=== PATIENT | male | born 1980 | race Caucasian/White ===

== ENCOUNTER 2017-04-10 22:08 | Inpatient (IN) | payer OTHER ==
[~2017-04-10] VITALS: Ht 182.9 cm; Wt 98.2 kg
--- NOTE | ~2017-04-10 | EKG ---
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1980 Requested By: Dacia Soto Order Number: [id number] MD: Jonn Arias Measurements Intervals [place] Rate: 83 P: 51 WA: 164 QRS: -21 QRSD: 88 T: 41 QT: 382 QTc: 449 Interpretive Statements Sinus rhythm Borderline left axis deviation Compared to ECG 10/15/2016 16:28:02 ST (T wave) deviation now present Sinus tachycardia no longer present Myocardial infarct finding no longer present Electronically Signed On 04-11-2017 7:58:27 CDT by Jonn Arias [email or web address] <ELECTRONICALLY SIGNED> By: Jonn Arias MD, [facility] 04/11/17 [id number] Jonn Arias MD, [facility] /EPI
[~2017-04-10 22:08] MED LIST: CIPRO500 MG PO; CLONAZEPAM 1 MG1 M1 PO; COMPAZINE10 MG PO; FLAGYL 250 MG250 MG PO; FLAGYL500 MG PO; HYDROCODONE-AP1 EAC6 PO; LOMOTIL TABLET1 EACH PO; MS CONTIN 60 MG60 M1 PO; NEURONTIN600 MG PO; OXYCONTIN10 M1 PO; PENTASA500 MG PO; POTASSIUM20 PO; PREDNISONE 20 M20 MG PO; PROTONIX40 M1 PO; REGLAN 10 MG TA10 MG PO; REMICADE 1100 MG/VIA; RESTORIL30 MG PO; SLOW-MAG64 MG PO; ZOFRAN ODT4 MG DISSOLVE; ZOFRAN ODT4 MG PO; ZOLPIDEM TARTRA10 MG PO
[2017-04-10 22:11] VITALS: BP 133/89
[2017-04-10 22:53] LABS: ABSOLUTE NEUTROPHILS 10.2 thou/uL (1.4-8.2); BASOPHILS 0.9 % (0.0-2.0); EOSINOPHILS 0.5 % (0.0-3.0); HEMATOCRIT 45.6 % (42.0-52.0); HEMOGLOBIN 15.4 gm/dL (14.0-18.0); LYMPHOCYTES 18.7 % (24.0-44.0); MANUAL DIFF NO; MCH 25.9 pg (26.0-34.0); MCHC 33.8 g/dL (28.0-37.0); MCV 76.7 fL (80.0-100.0); MONOCYTES 4.8 % (1.0-8.0); PLATELET COUNT 297 thou/uL (150-400); POLYS 75.1 % (36.0-66.0); RBC 5.95 mil/uL (4.50-6.00); RDW 18.2 % (10.5-14.5); WBC 13.6 thou/uL (4.0-11.0)
[2017-04-10 23:01] LABS: CREATININE 0.7 mg/dL (0.7-1.3)
[2017-04-10 23:09] LABS: CALCIUM 5.7 mg/dL (8.5-10.1); POTASSIUM 1.9 mmol/L (3.5-5.1)
[2017-04-10] MEDS ORDERED: OXYCODONE HCL 55 MG PO (23:32)
[2017-04-10] MEDS ORDERED: MS CONTIN15 MG PO (23:33)
[2017-04-10] MEDS ORDERED: KEFLEX500 MG PO (23:34)
[2017-04-10] MEDS ORDERED: DOXYCYCLINE 10100 MG PO (23:34)
[2017-04-11 01:38] LABS: ALBUMIN 4.5 g/dL (3.4-5.0); DIRECT BILIRUBIN 0.2 mg/dL (<0.1-0.3); TOTAL BILIRUBIN 1.2 mg/dL (<0.1-1.0); TOTAL PROTEIN 7.8 g/dL (6.4-8.2)
[2017-04-11 01:51] VITALS: BP 126/75
[2017-04-11 02:21] VITALS: BP 134/87
[2017-04-11 05:24] VITALS: BP 103/58
[2017-04-11 08:30] VITALS: BP 99/63
[2017-04-11 11:00] LABS: AMP/METHAMP Negative (Negative); BARBITURATES Negative (Negative); BENZODIAZEPINES POSITIVE (Negative); COCAINE Negative (Negative); METHADONE Negative (Negative); OPIATES POSITIVE (Negative); PCP Negative (Negative); THC Negative (Negative)
[2017-04-11 14:28] LABS: URINE BILIRUBIN NEGATIVE (Negative); URINE BLOOD NEGATIVE (Negative); URINE COLOR YELLOW; URINE GLUCOSE-RANDOM* NEGATIVE (Negative); URINE KETONES NEGATIVE (Negative); URINE LEUKOCYTES-REFLEX NEGATIVE (Negative); URINE PROTEIN (DIPSTICK) NEGATIVE (Negative); URINE SPECIFIC GRAVITY 1.025 (1.003-1.035); URINE UROBILINOGEN 0.2 E.U./dl (0.2-1.0)
[2017-04-11 16:00] VITALS: BP 108/56
[2017-04-11] MEDS ORDERED: ZOFRAN ODT4 MG PO (22:58)
== END 2017-04-11 16:31 | disposition left against medical advice (07) | DRG 386 ==
LOC: ER 22:08 → 4N 04-11 01:00 → EROBS 04-11 01:00 → 4N 04-11 02:08
PROVIDERS: Emergency Medicine; Nurse Practitioner Acute Care; Nurse Practitioner Family
DX: K50.90 Crohn's disease, unspecified, without complications (principal); R65.10 Systemic inflammatory response syndrome (SIRS) of non-infectious origin without acute organ dysfunction; R10.9 Unspecified abdominal pain; L25.9 Unspecified contact dermatitis, unspecified cause; G89.29 Other chronic pain; E87.6 Hypokalemia; K21.9 Gastro-esophageal reflux disease without esophagitis; F11.10 Opioid abuse, uncomplicated; D72.829 Elevated white blood cell count, unspecified; E83.51 Hypocalcemia; Z83.79 Family history of other diseases of the digestive system; Z88.8 Allergy status to other drugs, medicaments and biological substances; Z93.2 Ileostomy status; Z90.49 Acquired absence of other specified parts of digestive tract
CPT/HCPCS: 10091

== ENCOUNTER 2017-04-11 19:30 | Emergency (ER) | payer OTHER ==
[~2017-04-11] VITALS: Ht 185.4 cm; Wt 97.5 kg
[~2017-04-11 19:30] MED LIST changes: +DOXYCYCLINE 10100 MG PO; +KEFLEX500 MG PO; +MS CONTIN15 MG PO; +OXYCODONE HCL 55 MG PO
[2017-04-11 21:03] LABS: ABSOLUTE NEUTROPHILS 6.8 thou/uL (1.4-8.2); BASOPHILS 0.7 % (0.0-2.0); EOSINOPHILS 0.8 % (0.0-3.0); HEMATOCRIT 38.3 % (42.0-52.0); LYMPHOCYTES 24.8 % (24.0-44.0); MCH 25.8 pg (26.0-34.0); MCHC 33.3 g/dL (28.0-37.0); MCV 77.7 fL (80.0-100.0); MONOCYTES 4.8 % (1.0-8.0); PLATELET COUNT 231 thou/uL (150-400); POLYS 68.9 % (36.0-66.0); RBC 4.93 mil/uL (4.50-6.00); RDW 17.9 % (10.5-14.5); WBC 9.9 thou/uL (4.0-11.0)
[2017-04-11 21:04] LABS: HEMOGLOBIN 12.7 gm/dL (14.0-18.0)
[2017-04-11 21:05] LABS: MANUAL DIFF NO
[2017-04-11 21:12] LABS: CALCIUM 8.5 mg/dL (8.5-10.1); CREATININE 1.2 mg/dL (0.7-1.3); POTASSIUM 3.6 mmol/L (3.5-5.1)
[2017-04-11 21:20] LABS: DIRECT BILIRUBIN 0.2 mg/dL (<0.1-0.3); TOTAL BILIRUBIN 0.9 mg/dL (<0.1-1.0)
[2017-04-11 21:21] LABS: ALBUMIN 3.7 g/dL (3.4-5.0); TOTAL PROTEIN 6.6 g/dL (6.4-8.2)
[2017-04-11] MEDS ORDERED: ZOFRAN ODT4 MG PO (22:58)
== END 2017-04-11 23:38 | disposition home or self-care (01) ==
LOC: ER 19:30
PROVIDERS: Emergency Medicine
DX: G89.29 Other chronic pain (principal); R10.84 Generalized abdominal pain; K50.90 Crohn's disease, unspecified, without complications; Z90.89 Acquired absence of other organs; Z90.49 Acquired absence of other specified parts of digestive tract; Z88.6 Allergy status to analgesic agent